=== PATIENT | female | born 1945 | race African-American/Black ===

== ENCOUNTER 2018-02-21 09:22 | Emergency (ER) | payer MEDICARE, MEDICAID, OTHER | END 2018-02-21 10:56 | disposition home or self-care (01) | LOC: FTE 09:22 | DX: M79.671 Pain in right foot (principal); J44.9 Chronic obstructive pulmonary disease, unspecified | CPT/HCPCS: 73630; 99283-25 ==

== ENCOUNTER 2018-12-30 00:20 | Emergency (ER) | payer SELFPAY, OTHER, MEDICAID, MEDICARE ==
[2018-12-30] MEDS ORDERED: METOCLOPRAMIDE 10 MG INJ IV (01:08)
[2018-12-30] MEDS ORDERED: ONDANSETRON 4 MG INJ IV (01:08)
[2018-12-30] MEDS ORDERED: morphine 4 MG/ML VIAL IV (01:08)
== END 2018-12-30 03:48 | disposition left against medical advice (07) ==
LOC: E/R 03:48
DX: Z53.21 Procedure and treatment not carried out due to patient leaving prior to being seen by health care provider (principal)